=== PATIENT | male | born 1970 | race Caucasian/White ===

== ENCOUNTER 2021-02-18 00:30 | Emergency (ER) | payer SELFPAY ==
[~2021-02-18] VITALS: Ht 165.1 cm; Wt 71.7 kg
[2021-02-18 00:37] VITALS: BP 128/77
--- NOTE | 2021-02-18 00:42 | NUR ---
PATIENT TO THE BATHROOM FOR URINE COLLECTION
--- NOTE | 2021-02-18 00:56 | NUR ---
PT LYING IN BED MD ANNA AT BEDSIDE EVALUATING PT.
[2021-02-18] MEDS ORDERED: DICYCLOMINE 20 MG/2 ML VIAL IM ONE (01:00)
[2021-02-18] MEDS ORDERED: ONDANSETRON 4 MG ODT PO ONE (01:00)
--- NOTE | 2021-02-18 01:20 | NUR ---
PT GIVEN ORDERED BENTYL IM AND SL ZOFRAN. PT EDUCATED REGARDING MEDICATION AND ITS PURPOSES.
[2021-02-18 01:33] LABS: BASOPHILS % (AUTO) 0.2 % (0.0-2.0); EOSINOPHILS % (AUTO) 0.1 % (0.0-4.0); HEMOGLOBIN 17.7 g/dL (12.0-18.0); LYMPHOCYTES # (AUTO) 0.7 K/uL (2.0-11.5); LYMPHOCYTES % (AUTO) 12.2 % (20.5-51.1); MEAN CORPUSCULAR HEMOGLOBIN 30 pg (27-31); MEAN CORPUSCULAR HGB CONC 36 g/dL (33-37); MONOCYTES # (AUTO) 0.8 K/uL (0.8-1.0); MONOCYTES % (AUTO) 15.1 % (1.7-9.3); NEUTROPHILS % (AUTO) 72.4 % (42.2-75.2); PLATELET COUNT (AUTO) 250 K/uL (140-450); RED BLOOD CELL COUNT(AUTO) 5.88 MIL/uL (4.20-6.10); RED CELL DISTRIBUTION WIDTH 13.3 % (11.6-13.7); WHITE BLOOD COUNT (AUTO) 5.6 K/uL (4.8-10.8)
[2021-02-18 01:53] LABS: ALBUMIN 3.1 g/dL (3.4-5.0); ANION GAP 13.8 (8-16); CARBON DIOXIDE 27.3 mmol/L (21-32); CREATININE 0.9 mg/dL (0.6-1.3); POTASSIUM 3.1 mmol/L (3.5-5.1); TOTAL BILIRUBIN 0.8 mg/dL (0.0-1.0)
--- NOTE | 2021-02-18 01:59 | NUR ---
PT TAKEN VIA W/C FOR CT OF ABDOMEN.
--- NOTE | 2021-02-18 02:22 | NUR ---
ROUNDS DONE, PT RESTING IN BED.
[2021-02-18] MEDS ORDERED: POTASSIUM CHLORIDE 10 MEQ TABER PO ONE (02:50)
[2021-02-18] MEDS ORDERED: BEN10 PO (02:58)
[2021-02-18 03:43] VITALS: BP 122/90
--- NOTE | 2021-02-18 03:43 | NUR ---
Patient discharged with v/s stable. Written and verbal after care instructions given and explained. Patient alert, oriented and verbalized understanding of instructions. Ambulatory with steady gait. All questions addressed prior to discharge. ID band removed. Patient advised to follow up with PMD. Rx of BENTYL given. Patient educated on indication of medication including possible reaction and side effects. Opportunity to ask questions provided and answered.
== END 2021-02-18 03:43 | disposition home or self-care (01) ==
LOC: MED 00:30
DX: K56.7 Ileus, unspecified (principal); E87.6 Hypokalemia; Z79.899 Other long term (current) drug therapy
CPT/HCPCS: 36415; 74176; 80053; 81002; 83690; 85025; 96372; 99284; J0500; Q0162